=== PATIENT | female | born 1980 | race Caucasian/White ===

== ENCOUNTER 2021-06-10 04:02 | Inpatient (IN) | payer OTHER, MEDICAID ==
[~2021-06-10] VITALS: Ht 152.4 cm; Wt 73.0 kg
[2021-06-10 05:30] VITALS: BP 109/72
[2021-06-10] MEDS ORDERED: LORazepam 2 MG/ML VIAL ONE (09:02)
[2021-06-10] MEDS ORDERED: DiphenhydrAMINE HCL 50 MG/ML VIAL IM ONE (09:15)
[2021-06-10] MEDS ORDERED: HALOPERIDOL LACTATE 5 MG/ML VIAL IM ONE (09:15)
[2021-06-10] MEDS ORDERED: LORazepam 2 MG/ML VIAL IM ONE (09:15)
[2021-06-10] MEDS ORDERED: BENZ1TAB96 PO (09:27)
[2021-06-10] MEDS ORDERED: CHLO50TA61 PO (09:29)
[2021-06-10] MEDS ORDERED: CALC-265 PO (09:37)
[2021-06-10] MEDS ORDERED: MAGN100T PO (09:37)
[2021-06-10] MEDS ORDERED: LITH300CRT PO (09:37)
[2021-06-10] MEDS ORDERED: LINA72CA PO (09:37)
[2021-06-10] MEDS ORDERED: VALP250C48 PO (09:37)
[2021-06-10] MEDS ORDERED: HYDR-4808 PO (09:37)
[2021-06-10] MEDS ORDERED: TRAZ-257 PO (09:39)
[2021-06-10] MEDS ORDERED: OMEP20 PO (09:39)
[2021-06-10] MEDS ORDERED: RISP2TAB45 PO ×2 (09:40→09:42)
[2021-06-10] MEDS ORDERED: OLAN10TA74 PO (09:43)
[2021-06-10] MEDS ORDERED: CLOZ25TA5 PO (09:46)
[2021-06-10] MEDS ORDERED: CLON0.1T2 PO (09:46)
[2021-06-10] MEDS ORDERED: DOCU-202 PO (09:46)
[2021-06-10 10:19] VITALS: BP 129/76
[2021-06-10 10:28] VITALS: BP 129/76
[2021-06-10 16:17] VITALS: BP 119/72
[2021-06-10] MEDS ORDERED: OMEPRAZOLE 20 MG CAPSULE PO PRN (17:00)
[2021-06-10] MEDS ORDERED: MAG HYDROX/AL HYDROX/SIMETH ES 30 ML SUSPENSION UDCUP PO PRN (17:00)
[2021-06-10] MEDS ORDERED: DOCUSATE SODIUM 100 MG CAPSULE PO PRN (17:00)
[2021-06-10] MEDS ORDERED: MAGNESIUM HYDROXIDE SUSPENSION 30 ML UDCUP PO PRN (17:00)
[2021-06-10] MEDS ORDERED: IBUPROFEN 600 MG TABLET PO PRN (17:00)
[2021-06-10] MEDS ORDERED: ALBUTEROL SULFATE HFA 90 MCG/PUFF 8 GM INHALER IH PRN (17:00)
[2021-06-10] MEDS ORDERED: CloNIDine HCL 0.1 MG TABLET PO PRN (17:00)
[2021-06-10] MEDS ORDERED: BACITRACIN 28 GM OINTMENT TP PRN (17:00)
[2021-06-10] MEDS ORDERED: ACETAMINOPHEN 325 MG TABLET PO PRN (17:00)
[2021-06-10] MEDS ORDERED: LOPERAMIDE HCL 2 MG CAPSULE PO PRN (17:00)
[2021-06-10] MEDS ORDERED: PETROLATUM,WHITE 28 GM JELLY TP PRN (17:00)
[2021-06-10] MEDS ORDERED: BENZOCAINE/MENTHOL LOZENGE PO PRN (17:00)
[2021-06-10] MEDS ORDERED: ONDANSETRON HCL 4 MG TABLET PO PRN (17:00)
[2021-06-10] MEDS: LITHIUM CARBONATE 300 MG CAPSULE PO SCH (20:13)
[2021-06-10] MEDS: LORazepam 2 MG TABLET PO PRN (20:13)
[2021-06-10] MEDS: ZOLPIDEM TARTRATE 10 MG TABLET PO PRN (20:13)
[2021-06-10] MEDS: RisperiDONE 3 MG TABLET PO SCH (20:13)
[2021-06-11 06:29] VITALS: BP 110/68
[2021-06-11] MEDS: LINACLOTIDE 72 MCG CAPSULE PO SCH (06:55)
[2021-06-11 07:18] LABS: BASOPHILS % (AUTO) 0.5 % (0.0-2.0); EOSINOPHILS % (AUTO) 2.3 % (1.0-6.0); HEMATOCRIT 41.1 % (36-46); HEMOGLOBIN 13.9 g/dL (12.0-16.0); LYMPHOCYTES # (AUTO) 2.5 K/uL (1.0-4.8); LYMPHOCYTES % (AUTO) 24.2 % (22.0-44.0); MEAN CORPUSCULAR HEMOGLOBIN 29.5 pg (26.0-34.0); MEAN CORPUSCULAR HGB CONC 33.8 G/dL (31.0-37.0); MEAN CORPUSCULAR VOLUME 87 fL (80-100); MONOCYTES # (AUTO) 0.7 K/uL (0.1-1.0); NEUTROPHILS # (AUTO) 6.7 K/uL (1.8-7.7); PLATELET COUNT (AUTO) 283 K/uL (150-450); RED BLOOD CELL COUNT(AUTO) 4.71 MIL/uL (4.00-5.20); RED CELL DISTRIBUTION WIDTH 13.6 % (11.5-14.5)
[2021-06-11 07:55] LABS: ALBUMIN 3.2 g/dL (3.4-5.0); BILIRUBIN,TOTAL 0.3 mg/dL (0.1-1.0); CALCIUM, TOTAL 9.3 mg/dL (8.8-10.5); CREATININE 1.06 mg/dL (0.60-1.30); FREE T4 (FREE THYROXINE) 1.3 ng/dL (0.76-1.46); POTASSIUM 3.5 mmol/L (3.5-5.1); THYROID STIMULATING HORMONE 2.07 uIU/mL (0.36-3.74); TOTAL PROTEIN, SERUM 6.8 g/dL (6.4-8.2)
[2021-06-11 08:11] VITALS: BP 105/70
[2021-06-11] MEDS: LORazepam 2 MG TABLET PO PRN (08:18)
[2021-06-11] MEDS: LITHIUM CARBONATE 300 MG CAPSULE PO SCH ×2 (08:18→20:43)
[2021-06-11] MEDS: RisperiDONE 3 MG TABLET PO SCH ×2 (08:18→20:43)
[2021-06-11 16:28] VITALS: BP 125/71
[2021-06-12 06:20] VITALS: BP 114/69
[2021-06-12] MEDS: LINACLOTIDE 72 MCG CAPSULE PO SCH (06:31)
[2021-06-12] MEDS: RisperiDONE 3 MG TABLET PO SCH ×2 (08:08→20:43)
[2021-06-12] MEDS: LORazepam 2 MG TABLET PO PRN (08:08)
[2021-06-12] MEDS: LITHIUM CARBONATE 300 MG CAPSULE PO SCH ×2 (08:08→20:43)
[2021-06-12 08:22] VITALS: BP 120/79
[2021-06-12] MEDS: HALOPERIDOL 5 MG TABLET PO PRN (10:29)
[2021-06-12 16:14] VITALS: BP 100/62
[2021-06-13 00:34] VITALS: BP 108/67
[2021-06-13] MEDS: LINACLOTIDE 72 MCG CAPSULE PO SCH (06:25)
[2021-06-13 08:07] VITALS: BP 134/77
[2021-06-13] MEDS: LITHIUM CARBONATE 300 MG CAPSULE PO SCH ×2 (08:27→20:20)
[2021-06-13] MEDS: RisperiDONE 3 MG TABLET PO SCH ×2 (08:27→20:19)
[2021-06-13] MEDS: LORazepam 2 MG TABLET PO PRN ×2 (10:00→14:28)
[2021-06-13] MEDS: HALOPERIDOL 5 MG TABLET PO PRN (10:00)
[2021-06-13 17:14] VITALS: BP 128/72
[2021-06-14] MEDS: LORazepam 2 MG TABLET PO PRN ×3 (06:11→17:22)
[2021-06-14] MEDS: LINACLOTIDE 72 MCG CAPSULE PO SCH (06:22)
[2021-06-14] MEDS: RisperiDONE 3 MG TABLET PO SCH ×2 (07:58→20:30)
[2021-06-14] MEDS: LITHIUM CARBONATE 300 MG CAPSULE PO SCH ×2 (07:58→20:26)
[2021-06-14 08:04] VITALS: BP 133/71
[2021-06-14] MEDS: HALOPERIDOL 5 MG TABLET PO PRN ×2 (10:06→17:22)
[2021-06-14 16:09] VITALS: BP 117/77
[2021-06-14] MEDS: ZOLPIDEM TARTRATE 10 MG TABLET PO PRN (20:26)
[2021-06-15] MEDS: LINACLOTIDE 72 MCG CAPSULE PO SCH (06:41)
[2021-06-15 07:50] VITALS: BP 126/67
[2021-06-15] MEDS: LITHIUM CARBONATE 300 MG CAPSULE PO SCH ×2 (08:01→20:22)
[2021-06-15] MEDS: RisperiDONE 3 MG TABLET PO SCH ×2 (08:01→20:22)
[2021-06-15 08:39] VITALS: BP 126/67
[2021-06-15] MEDS: LORazepam 2 MG TABLET PO PRN ×2 (10:44→14:48)
[2021-06-15] MEDS: HALOPERIDOL 5 MG TABLET PO PRN ×2 (10:44→14:48)
[2021-06-15 16:02] VITALS: BP 120/70
[2021-06-16 05:00] VITALS: BP 112/79
[2021-06-16] MEDS: LINACLOTIDE 72 MCG CAPSULE PO SCH (06:26)
[2021-06-16 08:13] VITALS: BP 125/73
[2021-06-16] MEDS: LITHIUM CARBONATE 300 MG CAPSULE PO SCH (08:31)
[2021-06-16] MEDS: RisperiDONE 3 MG TABLET PO SCH (08:31)
[2021-06-16] MEDS: HALOPERIDOL 5 MG TABLET PO PRN (13:52)
[2021-06-16] MEDS ORDERED: RISP3TAB35 PO (15:50)
[2021-06-16] MEDS ORDERED: RISP3TAB63 PO (16:58)
[2021-06-16] MEDS ORDERED: LITH300C3 PO (16:58)
== END 2021-06-16 17:30 | disposition home or self-care (01) | DRG 885 ==
LOC: B3A 06:45
PROVIDERS: ADMIT Psychiatry & Neurology Psychiatry; ATTEND Psychiatry & Neurology Psychiatry
DX: F20.9 Schizophrenia, unspecified (principal); F32.A Depression, unspecified; F41.9 Anxiety disorder, unspecified; G47.00 Insomnia, unspecified; K59.00 Constipation, unspecified; Z59.00 Homelessness unspecified; Z72.0 Tobacco use; Z72.89 Other problems related to lifestyle; Z88.8 Allergy status to other drugs, medicaments and biological substances; Z71.89 Other specified counseling
CPT/HCPCS: 80053; 80061; 80178; 84439; 84443; 85025; J1200; J1630; J2060; Q9967